=== PATIENT | female | born 1980 | race African-American/Black ===

== ENCOUNTER 2020-05-11 00:28 | Emergency (ER) | payer OTHER ==
[2020-05-11 00:42] VITALS: BP 148/92; TEMP 98.3; BMI 50.1
[2020-05-11 01:59] LABS: BASO % 0.5 % (0-2.0); EOS % 1.6 % (0-4.5); HEMATOCRIT 36.8 % (32.4-45.2); LYMPH % 24.4 % (8-40); MCHC 32.7 g/dl (32.0-36.0); MEAN CELL VOLUME 79.6 fl (80-96); MEAN PLT VOLUME 8.2 fl (7.5-11.1); MONO % 4.4 % (3.8-10.2); NEUT % 69.1 % (42.8-82.8); PLATELET COUNT 411 K/MM3 (134-434); RBC 4.62 M/mm3 (3.60-5.2); WHITE BLOOD COUNT 13.9 K/mm3 (4.0-10.0)
[2020-05-11 02:12] LABS: CHLORIDE 102 mmol/L (98-107); POTASSIUM 3.9 mmol/L (3.5-5.1); SODIUM 136 mmol/L (136-145)
[2020-05-11 02:14] LABS: ANION GAP 9 MMOL/L (8-16); BLOOD UREA NITROGEN 20.5 mg/dL (7-18); CALCIUM 10.3 mg/dL (8.5-10.1); CO2 24 mmol/L (21-32); GLUCOSE,RANDOM 115 mg/dL (74-106)
[2020-05-11 02:17] LABS: SGOT/AST 8 U/L (15-37); SGPT/ALT 17 U/L (13-61)
[2020-05-11 02:18] LABS: CREATININE 0.9 mg/dL (0.55-1.3)
[2020-05-11 02:19] LABS: BILIRUBIN,TOTAL 0.3 mg/dL (0.2-1); TOT PROT 8.3 g/dl (6.4-8.2)
[2020-05-11 02:20] LABS: ALK PHOS 101 U/L (45-117)
[2020-05-11 03:20] VITALS: PULSE 88
== END 2020-05-11 04:17 | disposition home or self-care (01) ==
LOC: JER 00:28
DX: R00.2 Palpitations (principal)
CPT/HCPCS: 36415; 71046-TC-FY; 80053; 82550; 84443; 84484; 85025; 85730; 93005; 93010; 99284-25

== ENCOUNTER 2020-05-14 22:59 | Inpatient (IN) | payer OTHER ==
[2020-05-14 23:55] VITALS: BMI 51.6
[2020-05-15 00:30] LABS: BASO % 1.3 % (0-2.0); EOS % 1.4 % (0-4.5); HEMATOCRIT 35.8 % (32.4-45.2); HEMOGLOBIN 11.6 GM/dL (10.7-15.3); LYMPH % 25.4 % (8-40); MCH 25.7 pg (25.7-33.7); MCHC 32.3 g/dl (32.0-36.0); MEAN CELL VOLUME 79.4 fl (80-96); MEAN PLT VOLUME 8.2 fl (7.5-11.1); MONO % 6.2 % (3.8-10.2); NEUT % 65.7 % (42.8-82.8); PLATELET COUNT 366 K/MM3 (134-434); RDW 15.7 % (11.6-15.6); WHITE BLOOD COUNT 12.7 K/mm3 (4.0-10.0)
[2020-05-15 00:38] LABS: INR 1.05 (0.83-1.09); PROTHROMBIN TIME (PATIENT) 12.9 SEC (9.7-13.0)
[2020-05-15 00:41] LABS: ACTIVATED PTT 28.8 SECONDS (25.2-36.5)
[2020-05-15 00:44] LABS: CHLORIDE 99 mmol/L (98-107); POTASSIUM 3.6 mmol/L (3.5-5.1); SODIUM 133 mmol/L (136-145)
[2020-05-15 00:47] LABS: ALBUMIN 4.1 g/dl (3.4-5.0); ANION GAP 8 MMOL/L (8-16); CO2 26 mmol/L (21-32); GLUCOSE,RANDOM 108 mg/dL (74-106); MAGNESIUM 2.2 mg/dL (1.8-2.4)
[2020-05-15 00:50] LABS: CREATININE 0.9 mg/dL (0.55-1.3); SGOT/AST 13 U/L (15-37); SGPT/ALT 19 U/L (13-61)
[2020-05-15 00:51] LABS: BILIRUBIN,TOTAL 0.3 mg/dL (0.2-1); TOT PROT 8.3 g/dl (6.4-8.2)
[2020-05-15 00:53] LABS: ALK PHOS 87 U/L (45-117)
[2020-05-15 01:44] LABS: CALCIUM 9.8 mg/dL (8.5-10.1)
[2020-05-15] MEDS ORDERED: ENOXAPARIN NA (PORCINE) 40 MG/0.4 ML DISP.SYRIN SQ SCH ×2 (06:45→10:00)
[2020-05-15 06:50] LABS: URINE APPEARANCE CLEAR; URINE BILIRUBIN NEGATIVE (NEGATIVE); URINE COLOR YELLOW; URINE GLUCOSE (UA) NEGATIVE (NEGATIVE); URINE KETONE NEGATIVE (NEGATIVE); URINE LEUK ESTERASE NEGATIVE (NEGATIVE); URINE NITRITE NEGATIVE (NEGATIVE); URINE PROTEIN NEGATIVE (NEGATIVE); URINE UROBILINOGEN 0.2 mg/dL (0.2-1.0)
[2020-05-15 06:58] LABS: URINE BARBITURATES NEGATIVE ng/ml (CUTOFF=200); URINE BENZODIAZEPINES NEGATIVE ng/ml (CUTOFF=200)
[2020-05-15 06:59] LABS: METHADONE, UR NEGATIVE ng/ml (CUTOFF=300); PHENCYCLIDINE,URINE NEGATIVE ng/ml (CUTOFF=25)
[2020-05-15 07:14] LABS: COCAINE, UR NEGATIVE ng/ml (CUTOFF=300); OPIATES, URI NEGATIVE ng/ml (CUTOFF=300); URINE AMPHETAMINES NEGATIVE ng/ml (CUTOFF=500)
[2020-05-15] MEDS ORDERED: ENOXAPARIN NA (PORCINE) 40 MG/0.4 ML DISP.SYRIN SQ ONE (07:45)
[2020-05-15 09:26] LABS: BASO % 0.5 % (0-2.0); EOS % 1.5 % (0-4.5); HEMATOCRIT 36.1 % (32.4-45.2); HEMOGLOBIN 11.9 GM/dL (10.7-15.3); LYMPH % 28.3 % (8-40); MCH 26.2 pg (25.7-33.7); MEAN CELL VOLUME 79.2 fl (80-96); MEAN PLT VOLUME 8.1 fl (7.5-11.1); MONO % 5.4 % (3.8-10.2); NEUT % 64.3 % (42.8-82.8); PLATELET COUNT 384 K/MM3 (134-434); RBC 4.56 M/mm3 (3.60-5.2); RDW 15.8 % (11.6-15.6); WHITE BLOOD COUNT 10.4 K/mm3 (4.0-10.0)
[2020-05-15 09:46] LABS: POTASSIUM 3.5 mmol/L (3.5-5.1)
[2020-05-15 09:49] LABS: CALCIUM 9.9 mg/dL (8.5-10.1); MAGNESIUM 2.3 mg/dL (1.8-2.4)
[2020-05-15 09:50] LABS: ALBUMIN 4.2 g/dl (3.4-5.0); BLOOD UREA NITROGEN 16.9 mg/dL (7-18)
[2020-05-15 09:52] LABS: CREATININE 0.9 mg/dL (0.55-1.3)
[2020-05-15 09:53] LABS: PHOSPHOROUS 4.2 mg/dL (2.5-4.9)
[2020-05-15 09:54] LABS: TOT PROT 8.4 g/dl (6.4-8.2)
[2020-05-15 09:55] LABS: BILIRUBIN,TOTAL 0.6 mg/dL (0.2-1)
[2020-05-15] MEDS ORDERED: ATENOLOL 50 MG TABLET (FP) PO SCH (10:00)
[2020-05-15] MEDS ORDERED: FOLIC ACID 1 MG TABLET (FP) PO SCH (10:00)
[2020-05-15] MEDS ORDERED: THIAMINE HCL 100 MG TABLET (FP) PO SCH (10:00)
[2020-05-15] MEDS ORDERED: ATENOLOL 25 MG TABLET (FP) ONE (10:28)
[2020-05-15] MEDS ORDERED: FOLIC ACID 1 MG TABLET (FP) ONE (10:29)
[2020-05-15] MEDS ORDERED: THIAMINE HCL 100 MG TABLET (FP) ONE (10:29)
[2020-05-15 12:53] VITALS: PULSE 85; TEMP 98.7
[2020-05-15 16:45] VITALS: BP 135/81
== END 2020-05-15 16:54 | disposition home or self-care (01) | DRG 201 ==
LOC: JER 22:59 → JERBED 05-15 02:51 → OBSVTOIN 05-15 05:26 → J6WEST-2 05-15 12:22
PROVIDERS: ADMIT Internal Medicine; ATTEND Family Medicine
DX: R00.2 Palpitations (principal); R07.89 Other chest pain; R00.0 Tachycardia, unspecified; I10 Essential (primary) hypertension; E66.01 Morbid (severe) obesity due to excess calories; Z68.43 Body mass index [BMI] 50.0-59.9, adult; F10.10 Alcohol abuse, uncomplicated; F17.210 Nicotine dependence, cigarettes, uncomplicated; D72.829 Elevated white blood cell count, unspecified; F10.20 Alcohol dependence, uncomplicated
CPT/HCPCS: 36415; 71045-TC-FY; 71275-TC; 80053; 80307; 81003; 82550; 83036; 83735; 84100; 84436; 84479; 84484; 85025; 85379; 85610; 85730; 93005; 93010; 93306-TC; 99285-25; C9803; G0378; Q9967; U0003